=== PATIENT | male | born 1960 | race Caucasian/White ===

== ENCOUNTER 2021-05-09 08:25 | Inpatient (IN) ==
--- NOTE | 2021-05-09 08:53 | Emergency Department Note ---
Impression & Plan Bilateral pulmonary embolism, Iliac DVT (deep venous thrombosis), Phlegmasia cerulea dolens ED Provider Note NAME: JOE MORIN AGE: 60 SEX: M : 1960 ARRIVES VIA: Walk-In INFORMANT: Patient, ED PROVIDER(S): Paco Holley MD Chief Complaint: Left lower extremity swelling, headache, back pain HPI: Patient does present with the above complaints. Patient states that his left lower extremity swelling has been ongoing for approximate 3 to 4 days. No recent surgeries procedures or hospitalizations. No prior history of DVT or PE. The patient has had some associated abdominal back pain and thought that he was developing shingles rash so the patient recently started taking antivirals yesterday. Patient does have a global nonspecific headache. Patient denies any fevers chills chest pains or shortness of breath. Patient is not had any vomiting. The patient did not take his typical back pain medication given his evaluation today. The patient denies any recent falls or trauma. The patient has had some increasing swelling of the left lower extremity but denies any recent trauma. The patient does not take blood thinning medications. Reportedly the patient had a dopplerable pedal pulse in triage. ROS: See HPI for pertinent positives and negatives. A total of 10 systems were reviewed and otherwise negative. Past medical history: See below Surgical history: See below Social history: See below Physical Exam: GENERAL: NAD, wearing a mask, non-toxic. EYE EXAM: Normal conjunctiva. PERRL, no anisocoria and EOM's grossly intact w/o pain. NECK: Supple, no nuchal rigidity, no adenopathy, non-tender. No signs of meningismus. LUNGS: Clear to auscultation. Normal chest wall mechanics. HEART: NSR, no MRG. ABDOMEN: Abdomen soft, non-tender, normo-active bowel sounds, no masses, no re bound or guarding. BACK: No CVA TTP. SKIN: No rashes and no bruising. UPPER EXTREMITIES: Upper extremities are grossly normal. LOWER EXTREMITIES: Significant swelling and cyanosis of the left lower ex tremity, compartments are soft, dopplerable left PT pulse. NEURO EXAM: A&O x3, cranial nerves II-XII grossly intact, normal speech, moves all 4 extremities on command w/o issue. Differential diagnoses: DVT, musculoskeletal, infection, joint effusion, trauma, lymphedema, idiopathic, CHF, as well as other pathologies. Course: Patient was seen and evaluated the bedside. Full history physical exam was performed. EKG interpreted by me Normal sinus rhythm, rate of 86, normal intervals, normal axis, no ST changes or T WI. Imaging Studies: See Below Cardiac monitoring: An order was placed for continuous cardiac monitoring. The monitor shows a rate of 85 with sinus rhythm. MDM: Patient does present with left lower extremity swelling headache and back pain. Patient did have blood work completed. Patient did go to ultrasound initially and arterial Doppler was ordered given the cyanosis of the left lower extremity. This was ordered initially with the idea that if the patient had a negative study the patient will get a DVT study. Arterial Doppler was negative and the coffee machine technician did perform a DVT ultrasound which showed to have large clot burden in the left lower extremity. I did tell CAT scan to still get the contrasted study with mild kidney dysfunction of creatinine 1.7 given the patient's abdominal pain likely cerulea dolens and reported labored breathing. Patient also did have CT of the head given the patient's headache. Patient CT of the head is negative. CT of the chest does show bilateral PEs. CT abdomen pelvis did show the bilateral PEs as well as iliac vein thromboses. Heparin was ordered. I did speak with the on-call vascular surgeon Dr. Guzman who only room recommended heparinization at this time. I did speak the on-call hospitalist AZUL Perla and the patient was admitted to Dr. Seay. Critical Care: I have personally spent 77 minutes of critical care time in direct management of this patient. This includes bedside care, interpretation of diagnostic studies, and testing, discussion with consultants, patient, and family members, and other require inpatient management activities. This 77 minutes is in excess of all separately billable procedures. Past Med/Surg History Medical History Chronic back pain s/p injections / ablations Degenerative disc disease, lumbar GERD (gastroesophageal reflux disease) Lumbar facet joint syndrome Lumbar radiculopathy Sacroiliitis WPW (Xnxng-Csjybcrys-Bbwsk syndrome) Surgical History H/O left knee surgery H/O thumb surgery S/P arthroscopic surgery of right knee Family History Denies family history of Blood clotting disorder Social History Smoking Status: Former smoker Tobacco Type: E-cigarettes / Vaping Hx Alcohol Use: No Preferred Language: Citizen Of [place] Communication Ability: Effective Visual Impairment: No Limitations Hearing Ability: Normal Hide Trimmer Required: No Beliefs That Will Affect Care: None marital status: Current Living Situation: Spouse current occupational status: employed current occupation: Golf pro Feels Safe at Home: Yes Allergies Allergies Allergy/AdvReac Type Severity Reaction Status Date / Time digoxin Allergy Verified 05/09/21 10:57 Home Meds Home Medications Medication Instructions Recorded Confirmed cyclobenzaprine 10 mg tablet 10 mg PO BID PRN tab 02/17/19 05/09/21 meloxicam 15 mg tablet (Mobic) 15 mg PO DAILY 02/17/19 05/09/21 pantoprazole 40 mg tablet,delayed 40 mg PO DAILY PRN 02/17/19 05/09/21 release (Protonix) gabapentin 300 mg capsule 300 mg PO TID cap 11/02/20 05/09/21 (Neurontin) ibuprofen 200 mg tablet (Advil) 200 mg PO Q6H PRN 05/09/21 05/09/21 rosuvastatin 5 mg tablet (Crestor) 5 mg PO QAM 05/09/21 05/09/21 valacyclovir 1 gram tablet 1 mg PO TID 05/09/21 05/09/21 (Valtrex) Results & Data (ED) Vital Signs Vital Signs - 24 hr 05/09/21 08:36 05/09/21 09:36 05/09/21 10:30 Temperature 37.4 C Temperature Source Oral Pulse Rate 85 83 Pulse Rate [Finger] Pulse Rate from SpO2 Sensor 82 Respiratory Rate 20 14 Blood Pressure 113/71 127/82 Blood Pressure [Right Arm] Blood Pressure Mean 85 97 Blood Pressure Mean [Right Arm] Pulse Oximetry 99 98 95 Oxygen Delivery Method Room Air Room Air Sepsis Recent Fever Within 48 Hours No Sepsis New/Unexplained Change in Mental Status No Sepsis Action Taken by Nursing No Action Required 05/09/21 10:48 05/09/21 11:00 Temperature Temperature Source Pulse Rate 90 Pulse Rate [Finger] 84 Pulse Rate from SpO2 Sensor 90 Respiratory Rate 16 16 Blood Pressure 133/87 Blood Pressure [Right Arm] 127/82 Blood Pressure Mean 102 Blood Pressure Mean [Right Arm] 97 Pulse Oximetry 96 95 Oxygen Delivery Method Room Air Sepsis Recent Fever Within 48 Hours Sepsis New/Unexplained Change in Mental Status Sepsis Action Taken by Long-Term Medications Current Medication List: was personally reviewed by me Laboratory Data Attestation: I reviewed the patient's lab results. Result diagrams: 05/09/21 09:01 05/09/21 09: Lab Results 05/09/21 05/09/21 05/09/21 Range/Units 09:01 09: 09:01 WBC 14.99 H (4.8-10.8) K/uL RBC 5.54 (4.7-6.1) M/uL Hgb 17.3 (14.0-18.0) g/dL Hct 48.9 (42-52) % MCV 88.3 (80-100) fL MCH 31.2 (25-34) pg MCHC 35.4 (32-36) g/dL RDW Std Deviation 40.4 (36.4-46.3) fL RDW Coeff of Fortino 12.4 (11.5-14.5) % Plt Count 254 (130-400) K/uL MPV 9.5 (7.4-10.4) fL Immature Gran % (Auto) 0.1 % Neut % (Auto) 82.2 % Lymph % (Auto) 11.7 % [place] % (Auto) 4.7 % Eos % (Auto) 1.0 % Baso % (Auto) 0.3 % Neut # (Auto) 12.32 H (1.4-6.5) K/uL Lymph # (Auto) 1.75 (1.2-3.4) K/uL [place] # (Auto) 0.71 H (0.11-0.59) K/uL Eos # (Auto) 0.15 (0-0.5) K/uL Baso # (Auto) 0.04 (0-0.2) K/uL Immature Gran # (Auto) 0.02 (0.00-0.02) K/uL PT 10.6 (9.0-12.0) Seconds INR 1.0 (0.9-1.1) Sodium 137 (136-145) mmol/L Potassium 4.1 (3.5-5.1) mmol/L Chloride 103 (98-107) mmol/L Carbon Dioxide 24 (21-32) mmol/L Anion Gap 10.0 (3-11) BUN 22 H (7-18) mg/dl Creatinine 1.73 H (0.6-1.4) mg/dl Est Cr Clr Drug Dosing Not Reportable Est GFR ( Amer) 48.0 ml/min Est GFR (Non-Af Amer) 41.4 ml/min BUN/Creatinine Ratio 12.4 (10-20) Glucose 173 H (70-99) mg/dl Calcium 9.6 (8.5-10.1) mg/dl Total Bilirubin 0.9 (0.2-1) mg/dl AST 17 (15-37) U/L ALT 34 (12-78) U/L Alkaline Phosphatase 83 (45-117) U/L Troponin I < 0.015 (0-0.045) ng/ml Total Protein 9.3 H (6.4-8.2) gm/dl Albumin 4.4 (3.4-5.0) gm/dl Globulin 4.9 H (2.5-4.0) gm/dl Albumin/Globulin Ratio 0.9 (0.9-2) TSH 1.600 (0.300-4.500) uIu/ml COVID-19 Eval Order SARS-CoV-2 (PCR) (Negative) 05/09/21 05/09/21 Range/Units 09:31 09:31 WBC (4.8-10.8) K/uL RBC (4.7-6.1) M/uL Hgb (14.0-18.0) g/dL Hct (42-52) % MCV (80-100) fL MCH (25-34) pg MCHC (32-36) g/dL RDW Std Deviation (36.4-46.3) fL RDW Coeff of Fortino (11.5-14.5) % Plt Count (130-400) K/uL MPV (7.4-10.4) fL Immature Gran % (Auto) % Neut % (Auto) % Lymph % (Auto) % [place] % (Auto) % Eos % (Auto) % Baso % (Auto) % Neut # (Auto) (1.4-6.5) K/uL Lymph # (Auto) (1.2-3.4) K/uL [place] # (Auto) (0.11-0.59) K/uL Eos # (Auto) (0-0.5) K/uL Baso # (Auto) (0-0.2) K/uL Immature Gran # (Auto) (0.00-0.02) K/uL PT (9.0-12.0) Seconds INR (0.9-1.1) Sodium (136-145) mmol/L Potassium (3.5-5.1) mmol/L Chloride (98-107) mmol/L Carbon Dioxide (21-32) mmol/L Anion Gap (3-11) BUN (7-18) mg/dl Creatinine (0.6-1.4) mg/dl Est Cr Clr Drug Dosing Est GFR ( Amer) ml/min Est GFR (Non-Af Amer) ml/min BUN/Creatinine Ratio (10-20) Glucose (70-99) mg/dl Calcium (8.5-10.1) mg/dl Total Bilirubin (0.2-1) mg/dl AST (15-37) U/L ALT (12-78) U/L Alkaline Phosphatase (45-117) U/L Troponin I (0-0.045) ng/ml Total Protein (6.4-8.2) gm/dl Albumin (3.4-5.0) gm/dl Globulin (2.5-4.0) gm/dl Albumin/Globulin Ratio (0.9-2) TSH (0.300-4.500) uIu/ml COVID-19 Eval Order Covid19 at [facility] SARS-CoV-2 (PCR) NEGATIVE (Negative) Administered Medications Heparin Sodium/Dextrose (Heparin Sodium/Dextrose) 25,000 units in 500 mls @ 31 mls/hr IV .Q16H8M [facility]; Protocol Stop: 06/08/21 10:59 Last Admin: 05/09/21 11:11 Dose: 1,550 units/hr, 31 mls/hr Documented by: [id number] Cosigned by: [id number] Sodium Chloride (Nss 1000ml) 1,000 mls @ 125 mls/hr IV .Q8H [facility] Stop: 06/08/21 13:17 Last Admin: 05/09/21 13:44 Dose: 125 mls/hr Documented by: [id number] Discontinued Medications Heparin Sodium (Porcine) (Heparin Sod (Porcine) 1000 Unit/Ml) 1 units IV NOW ONE Stop: 05/09/21 10:56 Last Admin: 05/09/21 11:09 Dose: 5,000 units Documented by: [id number] Cosigned by: [id number] Morphine Sulfate (Morphine Sulfate 4 Mg/Ml 1 Ml Carp\Vial) 4 mg IV NOW STA Stop: 05/09/21 09:03 Last Admin: 05/09/21 09:30 Dose: 4 mg Documented by: [id number] Ondansetron HCl (Ondansetron Inj 2 Mg/Ml 2 Ml Vial) 4 mg IV NOW STA Stop: 05/09/21 09:03 Last Admin: 05/09/21 09:31 Dose: 4 mg Documented by: [id number] Imaging Data Radiologist's Impression: Chest X-Ray 05/09/21 09:01 XR chest 1V portable HISTORY: 60 years-old Male weakness acute weakness COMPARISON: CTA chest of same day TECHNIQUE: Portable AP view of the chest FINDINGS: Cardiomediastinal and hilar silhouettes are within normal limits. No pneumothorax, pleural effusion, airspace consolidation or overt pulmonary edema. No acute fracture. Degenerative changes of the shoulders and spine. IMPRESSION: No acute process. ACT 112: Negative or not required by law. The above report was generated using voice recognition software. It may contain grammatical, syntax or spelling errors. Electronically signed by: James Lopez M.D. 05/09/2021 11:04 AM Venous Doppler Study 05/09/21 09:01 LEFT LOWER EXTREMITY VENOUS DOPPLER HISTORY: Left leg swelling. discolored, swollen, decreased cap refill COMPARISON STUDY: None. FINDINGS: Occlusive thrombus within the left common femoral vein, superficial f emoral vein, and popliteal vein with additional areas of thrombus seen within the left calf veins. IMPRESSION: Extensive DVT within the left lower extremity. ACT 112: Negative or not required by law. Electronically signed by: Tim Howard M.D. 05/09/2021 10:18 AM Abdomen/Pelvis CT 05/09/21 09:[address] WITH IV CONTRAST CT DOSE: HISTORY: Generalized abdominal pain and back pain, also left lower extremity DVT. TECHNIQUE: Multiaxial CT images of the abdomen and pelvis were performed following the use of intravenous contrast. A dose lowering technique was utilized adhering to the principles of ALARA. COMPARISON STUDY: None. FINDINGS: Please refer to the same day chest CTA for further evaluation of the bilateral pulmonary emboli and lung bases. No pneumoperitoneum. No pneumatosis. No fractures within the visualized osseous structures. Moderate disc space narrowing at L5-S1. There are few scattered hypodense lesions seen within the liver the majority which are subcentimeter in size and are technically too small to characterize. Dominant hypodense lesion within the left hepatic lobe measures 1.9 cm. These favor cysts. There is mild hepatic steatosis. The gallbladder, pancreas, spleen, and adrenal glands are unremarkable. The kidneys enhance normally. No hydronephrosis. The main portal vein is patent. No retroperitoneal lymphadenopathy. Normal caliber abdominal aorta. The IVC appears patent. There is thrombus identified within the left common iliac, left external iliac, left femoral, and bilateral internal iliac veins. This consistent with deep vein thrombosis. This accounts for the mild fat stranding adjacent to these vascular structures. The prostate gland is mildly enlarged. The bladder is not well- distended but appears unremarkable. The iliac and visualized femoral arteries appear patent. No pelvic lymphadenopathy. No pelvic free fluid. There is left lower extremity edema noted. The mesenteric vessels appear patent. No bowel wall thickening or obstruction. Normal appendix. IMPRESSION: 1. Occlusive DVT involving the left iliac veins, visualized left femoral veins, and right internal iliac veins. The IVC appears patent. 2. Bilateral pulmonary emboli are better appreciated on the same day chest CTA. 3. Additional findings as described above ACT 112: Negative or not required by law. Electronically signed by: Tim Howard M.D. 05/09/2021 11:10 AM Chest CTA 05/09/21 10:08 CHEST CTA for PULMONARY ARTERIES CT DOSE: HISTORY: Shortness of breath. Known DVT. TECHNIQUE: Multiaxial CT images of the chest were performed following the intravenous administration of contrast to evaluate the pulmonary arteries. Maximal intensity projection images were also obtained. A dose lowering technique was utilized adhering to the principles of ALARA. COMPARISON STUDY: Chest CT 05/23/2017. FINDINGS: Filling defects seen within the right lower lobar pulmonary artery and extending into the right lower lobe segmental/subsegmental branches. There is also a filling defect seen within the left lower lobe segmental/subsegmental branches. There is also a small nonocclusive filling defect seen within the distal right main pulmonary artery and extending into the right upper lobe or pulmonary artery. These are consistent with pulmonary emboli. No evidence for right-sided heart strain. No evidence for an aortic dissection. Please refer to same day abdomen and pelvis CT for further evaluation of the abdominal structures. No mediastinal or hilar lymphadenopathy. Normal esophagus. No pleural or pericardial effusions. No suspicious lytic or blastic osseous le sions. The central airways are patent. No pneumothorax. Small peripheral groundglass airspace opacities within the right lower lobe may represent developing pulmonary infarcts. IMPRESSION: 1. Multiple bilateral pulmonary emboli, right greater than left. No evidence for right-sided heart strain. 2. Small peripheral groundglass densities within the right lower lobe may represent developing pulmonary infarcts. ACT 112: Negative or not required by law. Electronically signed by: Tim Howard M.D. 05/09/2021 10:[address] 05/09/21 10:[address] DOSE: 2377.22 mGy.cm HISTORY: headache TECHNIQUE: Multiaxial CT images of the head were performed without the use of intravenous contrast. Automated exposure control was utilized for this study. A dose lowering technique was utilized adhering to the principles of ALARA. Comparison: None. Findings: The paranasal sinuses and mastoid air cells are clear. The calvarium and skull base are intact. The ventricles and sulci are within normal limits. There is no mass, hematoma, midline shift, or acute infarct. Impression: No acute intracranial abnormality. ACT 112: Negative or not required by law. Electronically signed by: Tim Howard M.D. 05/09/2021 10:28 AM Discharge Plan Visit Data Chief Complaint: Swelling/Edema to Extremity Stated Complaint: SWOLLEN LEG,EXTREME BACK PAIN ED Provider: Paco Holley Discharge Problem: Bilateral pulmonary embolism, Iliac DVT (deep venous thrombosis), Phlegmasia ce rulea dolens Patient Disposition: Admitted As Inpatient Discharge Instructions Interventions: ED Discharge Assessment Last Done: 05/09/21 13:00
[2021-05-09] MEDS ORDERED: ONDANSETRON INJ 2 MG/ML 2 ML VIAL IV STA (09:02)
[2021-05-09] MEDS ORDERED: MoRPHine SULFATE 4 MG/ML 1 ML CARP\\VIAL IV STA (09:02)
[2021-05-09 09:11] LABS: Basophils # (auto) 0.04 K/uL (0-0.2); Basophils % (auto) 0.3 %; Eosinophils # (auto) 0.15 K/uL (0-0.5); Hematocrit (blood only) 48.9 % (42-52); Hemoglobin 17.3 g/dL (14.0-18.0); Immature Granulocytes # (auto) 0.02 K/uL (0.00-0.02); Immature Granulocytes % (auto) 0.1 %; Lymphocytes # (auto) 1.75 K/uL (1.2-3.4); Lymphocytes % (auto) 11.7 %; Mean Corpuscular Hemoglobin 31.2 pg (25-34); Mean Corpuscular Hgb Conc 35.4 g/dL (32-36); Mean Corpuscular Volume 88.3 fL (80-100); Mean Platelet Volume 9.5 fL (7.4-10.4); Monocytes # (auto) 0.71 K/uL (0.11-0.59); Monocytes % (auto) 4.7 %; Neutrophils # (auto) 12.32 K/uL (1.4-6.5); Neutrophils % (auto) 82.2 %; Platelet Count 254 K/uL (130-400); RDW Coefficient of Variation 12.4 % (11.5-14.5); RDW Standard Deviation 40.4 fL (36.4-46.3); Red Blood Count 5.54 M/uL (4.7-6.1); White Blood Count 14.99 K/uL (4.8-10.8)
[2021-05-09 09:25] LABS: Prothrombin Time 10.6 Seconds (9.0-12.0)
[2021-05-09 09:28] LABS: Alanine Aminotransferase 34 U/L (12-78); Albumin Level 4.4 gm/dl (3.4-5.0); Aspartate Aminotransferase 17 U/L (15-37); BUN Creatinine Ratio 12.4 (10-20); Blood Urea Nitrogen 22 mg/dl (7-18); Calcium 9.6 mg/dl (8.5-10.1); Carbon Dioxide 24 mmol/L (21-32); Chloride 103 mmol/L (98-107); Est GFR (Non-African American) 41.4 ml/min; Glucose 173 mg/dl (70-99); Potassium 4.1 mmol/L (3.5-5.1); Sodium 137 mmol/L (136-145)
[2021-05-09 09:39] LABS: Albumin Globulin Ratio 0.9 (0.9-2); Alkaline Phosphatase 83 U/L (45-117); Bilirubin,Total 0.9 mg/dl (0.2-1); Globulin 4.9 gm/dl (2.5-4.0); Total Protein 9.3 gm/dl (6.4-8.2); Troponin I < 0.015 ng/ml (0-0.045)
--- NOTE | 2021-05-09 10:19 | Ultrasound Report ---
LEFT LOWER EXTREMITY VENOUS DOPPLER HISTORY: Left leg swelling. discolored, swollen, decreased cap refill COMPARISON STUDY: None. FINDINGS: Occlusive thrombus within the left common femoral vein, superficial femoral vein, and popli teal vein with additional areas of thrombus seen within the left calf veins. IMPRESSION: Extensive DVT within the left lower extremity. ACT 112: Negative or not required by law. Electronically signed by: Tim Howard M.D. 05/09/2021 10:18 AM
--- NOTE | 2021-05-09 10:30 | CT Scan Report ---
HEAD CT NONCONTRAST CT DOSE: 2377.22 mGy.cm HISTORY: headache TECHNIQUE: Multiaxial CT images of the head were performed without the use of intravenous contrast. A utomated exposure control was utilized for this study. A dose lowering technique was utilized adheri ng to the principles of ALARA. Comparison: None. Findings: The paranasal sinuses and mastoid air cells are clear. The calvarium and skull base are int act. The ventricles and sulci are within normal limits. There is no mass, hematoma, midline shift, or acute infarct. Impression: No acute intracranial abnormality. ACT 112: Negative or not required by law. Electronically signed by: Tim Howard M.D. 05/09/2021 10:28 AM
[2021-05-09] MEDS ORDERED: Heparin IV Adult Wt-Based Standard WITH Bolus Protocol IV STA (10:39)
[2021-05-09] MEDS ORDERED: HEPARIN SOD (PORCINE) 1000 UNIT/ML IV ONE (10:55)
--- NOTE | 2021-05-09 10:57 | CT Scan Report ---
CHEST CTA for PULMONARY ARTERIES CT DOSE: HISTORY: Shortness of breath. Known DVT. TECHNIQUE: Multiaxial CT images of the chest were performed following the intravenous administration of contrast to evaluate the pulmonary arteries. Maximal intensity projection images were also obtaine d. A dose lowering technique was utilized adhering to the principles of ALARA. COMPARISON STUDY: Chest CT 05/23/2017. FINDINGS: Filling defects seen within the right lower lobar pulmonary artery and extending into the r ight lower lobe segmental/subsegmental branches. There is also a filling defect seen within the left lower lobe segmental/subsegmental branches. There is also a small nonocclusive filling defect seen wi thin the distal right main pulmonary artery and extending into the right upper lobe or pulmonary juanis ry. These are consistent with pulmonary emboli. No evidence for right-sided heart strain. No evidence for an aortic dissection. Please refer to same day abdomen and pelvis CT for further evaluation of t he abdominal structures. No mediastinal or hilar lymphadenopathy. Normal esophagus. No pleural or per icardial effusions. No suspicious lytic or blastic osseous lesions. The central airways are patent. N o pneumothorax. Small peripheral groundglass airspace opacities within the right lower lobe may repre sent developing pulmonary infarcts. IMPRESSION: 1. Multiple bilateral pulmonary emboli, right greater than left. No evidence for right-sided heart st rain. 2. Small peripheral groundglass densities within the right lower lobe may represent developing pulmon alyssa infarcts. ACT 112: Negative or not required by law. Electronically signed by: Tim Howard M.D. 05/09/2021 10:55 AM
--- NOTE | 2021-05-09 11:05 | XRay Report ---
XR chest 1V portable HISTORY: 60 years-old Male weakness acute weakness COMPARISON: CTA chest of same day TECHNIQUE: Portable AP view of the chest FINDINGS: Cardiomediastinal and hilar silhouettes are within normal limits. No pneumothorax, pleural effusion, airspace consolidation or overt pulmonary edema. No acute fracture. Degenerative changes of the shoul ders and spine. IMPRESSION: No acute process. ACT 112: Negative or not required by law. The above report was generated using voice recognition software. It may contain grammatical, syntax o r spelling errors. Electronically signed by: James Lopez M.D. 05/09/2021 11:04 AM
[2021-05-09] MEDS: HEPARIN SODIUM/DEXTROSE 25,000 UNITS/500 ML BAG IV SCH (11:11)
--- NOTE | 2021-05-09 11:11 | CT Scan Report ---
ABDOMEN AND PELVIS CT WITH IV CONTRAST CT DOSE: HISTORY: Generalized abdominal pain and back pain, also left lower extremity DVT. TECHNIQUE: Multiaxial CT images of the abdomen and pelvis were performed following the use of intrave nous contrast. A dose lowering technique was utilized adhering to the principles of ALARA. COMPARISON STUDY: None. FINDINGS: Please refer to the same day chest CTA for further evaluation of the bilateral pulmonary em boli and lung bases. No pneumoperitoneum. No pneumatosis. No fractures within the visualized osseous structures. Moderate disc space narrowing at L5-S1. There are few scattered hypodense lesions seen wi thin the liver the majority which are subcentimeter in size and are technically too small to characte rize. Dominant hypodense lesion within the left hepatic lobe measures 1.9 cm. These favor cysts. Ther e is mild hepatic steatosis. The gallbladder, pancreas, spleen, and adrenal glands are unremarkable. The kidneys enhance normally. No hydronephrosis. The main portal vein is patent. No retroperitoneal l ymphadenopathy. Normal caliber abdominal aorta. The IVC appears patent. There is thrombus identified within the left common iliac, left external iliac, left femoral, and bilateral internal iliac veins. This consistent with deep vein thrombosis. This accounts for the mild fat stranding adjacent to these vascular structures. The prostate gland is mildly enlarged. The bladder is not well-distended but ap pears unremarkable. The iliac and visualized femoral arteries appear patent. No pelvic lymphadenopath y. No pelvic free fluid. There is left lower extremity edema noted. The mesenteric vessels appear pat ent. No bowel wall thickening or obstruction. Normal appendix. IMPRESSION: 1. Occlusive DVT involving the left iliac veins, visualized left femoral veins, and right internal il iac veins. The IVC appears patent. 2. Bilateral pulmonary emboli are better appreciated on the same day chest CTA. 3. Additional findings as described above ACT 112: Negative or not required by law. Electronically signed by: Tim Howard M.D. 05/09/2021 11:10 AM
[2021-05-09] MEDS ORDERED: CYCLOBENZAPRINE HCL 10 MG TAB PO PRN (13:23)
--- NOTE | 2021-05-09 13:31 | History & Physical Report ---
Date of Service May 09, 2021 Assessment & Plan (1) Phlegmasia cerulea dolens: (2) Iliac DVT (deep venous thrombosis): (3) Bilateral pulmonary embolism: (4) DVT (deep venous thrombosis): Plan: -Admit to [facility] with telemetry -Patient presenting from home with reports of worsening left lower extremity pain and swelling -In the ED, found to have extensive left lower extremity DVT involving the left iliac veins, visualized left femoral veins, and right internal iliac veins -CTA chest shows bilateral pulmonary embolism -Patient hemodynamically stable, saturating well on room air -Seems to be unprovoked, recommend outpatient hypercoagulable work-up -S/p heparin bolus and drip in the ED, continue -Frequent LLE vascular checks, monitor closely for signs of compartment syndrome -Vascular surgery consult, input appreciated (5) KASSY (acute kidney injury): Plan: -Creatinine 1.7 -May be due to recent NSAID use -Recheck BMP later today, if no improvement or worsening, consider further renal imaging -IVF, hold NSAIDs, gabapentin (6) DVT prophylaxis: Plan: -On IV heparin Admission and Anticipated Discharge Date Admission Date: May 09, 2021 History of Present Illness Chief Complaint: Left lower extremity swelling and pain Primary Care Provider: Marquis Barrett MD 60-year-old male with PMH chronic back pain, dyslipidemia, former tobacco abuse, and other problems as below who presents the ED for evaluation of left lower extremity swelling and pain. Patient notes a slowly increasing left leg swelling and pain over the past few days. Patient also reports chronic low back pain which seems to be at baseline however yesterday, he developed some tingling to lower back that he felt was similar to a shingles outbreak before. Patient had a telemedicine visit with PCP yesterday who prescribed prednisone and valacyclovir. This morning, left leg had swelling extending from the foot up to the hip and was completely discolored. Patient then presented to the ED for further evaluation. Patient thinks he may have some mild worsening shortness of breath. No chest pain. Denies lightheadedness, dizziness, diaphoresis, syncopal events. No other recent illnesses, fevers, chills. He denies abdominal pain, nausea, vomiting, diarrhea. No urinary symptoms. In the ED, LLE venous Doppler shows extensive DVT within the left lower extremity. CTA ABD/pelvis shows occlusive DVT involving the left iliac veins, visualized left femoral veins, and right internal iliac veins. The IVC appears patent. CT chest shows Multiple bilateral pulmonary emboli, right greater than left. No evidence for right-sided heart strain. Patient is hemodynamically stable. He was given a heparin bolus and started on a drip. He also received doses of IV morphine and IV Zofran. Allergies Allergy/AdvReac Type Severity Reaction Status Date / Time digoxin Allergy Verified 05/09/21 10:57 Home Medications Medication Instructions Recorded Confirmed Type cyclobenzaprine 10 mg tablet 10 mg PO BID PRN tab 02/17/19 05/09/21 History meloxicam 15 mg tablet (Mobic) 15 mg PO DAILY 02/17/19 05/09/21 History pantoprazole 40 mg tablet,delayed 40 mg PO DAILY PRN 02/17/19 05/09/21 History release (Protonix) gabapentin 300 mg capsule 300 mg PO TID cap 11/02/20 05/09/21 History (Neurontin) ibuprofen 200 mg tablet (Advil) 200 mg PO Q6H PRN 05/09/21 05/09/21 History rosuvastatin 5 mg tablet (Crestor) 5 mg PO QAM 05/09/21 05/09/21 History valacyclovir 1 gram tablet 1 mg PO TID 05/09/21 05/09/21 History (Valtrex) Past Med/Surg History Medical History Chronic back pain s/p injections / ablations Degenerative disc disease, lumbar GERD (gastroesophageal reflux disease) Lumbar facet joint syndrome Lumbar radiculopathy Sacroiliitis WPW (Guhgu-Qdcmiiknk-Qhdkh syndrome) Surgical History H/O left knee surgery H/O thumb surgery S/P arthroscopic surgery of right knee Family History Denies family history of Blood clotting disorder Social History Smoking Status: Former smoker Tobacco Type: E-cigarettes / Vaping Hx Alcohol Use: No Preferred Language: Zimbabwean Communication Ability: Effective Visual Impairment: No Limitations Hearing Ability: Normal Editorial Cartoonist Required: No Beliefs That Will Affect Care: None marital status: Current Living Situation: Spouse current occupational status: employed current occupation: Golf pro Feels Safe at Home: Yes Review of Systems Review of Systems: ROS per HPI, all other systems reviewed and negative Physical Exam Physical Exam: Please refer to Dr. Cano's addendum for physical exam. Results & Data Results & Data ([facility]) Vital Signs (Past 12 Hours) Vital Signs Temp Pulse Pulse Resp BP BP Pulse Ox 05/09/21 13:00 83 22 132/90 96 05/09/21 12:30 87 22 132/100 98 05/09/21 12:00 83 18 134/77 96 05/09/21 11:30 95 H 18 146/81 H 96 05/09/21 11:00 90 16 133/87 95 05/09/21 10:48 84 16 127/82 96 05/09/21 10:30 83 14 127/82 95 05/09/21 09:36 98 05/09/21 08:36 37.4 C 85 20 113/71 99 Laboratory Results Short CBC 05/09/21 Range/Units 09:01 WBC 14.99 H (4.8-10.8) K/uL Hgb 17.3 (14.0-18.0) g/dL Hct 48.9 (42-52) % Plt Count 254 (130-400) K/uL BMP 05/09/21 09:01 Sodium 137 Potassium 4.1 Chloride 103 Carbon Dioxide 24 BUN 22 H Creatinine 1.73 H Glucose 173 H Calcium 9.6 Cardiac Enzymes 05/09/21 Range/Units 09:01 Troponin I < 0.015 (0-0.045) ng/ml Liver Function 05/09/21 Range/Units 09:01 Total Bilirubin 0.9 (0.2-1) mg/dl AST 17 (15-37) U/L ALT 34 (12-78) U/L Alkaline Phosphatase 83 (45-117) U/L Albumin 4.4 (3.4-5.0) gm/dl Diagnostic Findings Chest X-Ray 05/09/21 09:01 XR chest 1V portable HISTORY: 60 years-old Male weakness acute weakness COMPARISON: CTA chest of same day TECHNIQUE: Portable AP view of the chest FINDINGS: Cardiomediastinal and hilar silhouettes are within normal limits. No pneumothorax, pleural effusion, airspace consolidation or overt pulmonary edema. No acute fracture. Degenerative changes of the shoulders and spine. IMPRESSION: No acute process. ACT 112: Negative or not required by law. The above report was generated using voice recognition software. It may contain grammatical, syntax or spelling errors. Electronically signed by: James Lopez M.D. 05/09/2021 11:04 AM Venous Doppler Study 05/09/21 09:01 LEFT LOWER EXTREMITY VENOUS DOPPLER HISTORY: Left leg swelling. discolored, swollen, decreased cap refill COMPARISON STUDY: None. FINDINGS: Occlusive thrombus within the left common femoral vein, superficial femoral vein, and popliteal vein with additional areas of thrombus seen within the left calf veins. IMPRESSION: Extensive DVT within the left lower extremity. ACT 112: Negative or not required by law. Electronically signed by: Tim Howard M.D. 05/09/2021 10:18 AM Abdomen/Pelvis CT 05/09/21 09:[address] WITH IV CONTRAST CT DOSE: HISTORY: Generalized abdominal pain and back pain, also left lower extremity DVT. TECHNIQUE: Multiaxial CT images of the abdomen and pelvis were performed following the use of intravenous contrast. A dose lowering technique was utilized adhering to the principles of ALARA. COMPARISON STUDY: None. FINDINGS: Please refer to the same day chest CTA for further evaluation of the bilateral pulmonary emboli and lung bases. No pneumoperitoneum. No pneumatosis. No fractures within the visualized osseous structures. Moderate disc space narrowing at L5-S1. There are few scattered hypodense lesions seen within the liver the majority which are subcentimeter in size and are technically too small to characterize. Dominant hypodense lesion within the left hepatic lobe measures 1.9 cm. These favor cysts. There is mild hepatic steatosis. The gallbladder, pancreas, spleen, and adrenal glands are unremarkable. The kidneys enhance normally. No hydronephrosis. The main portal vein is patent. No retroperitoneal lymphadenopathy. Normal caliber abdominal aorta. The IVC appears patent. There is thrombus identified within the left common iliac, left external iliac, left femoral, and bilateral internal iliac veins. This consistent with deep vein thrombosis. This accounts for the mild fat stranding adjacent to these vascular structures. The prostate gland is mildly enlarged. The bladder is not well- distended but appears unremarkable. The iliac and visualized femoral arteries appear patent. No pelvic lymphadenopathy. No pelvic free fluid. There is left lower extremity edema noted. The mesenteric vessels appear patent. No bowel wall thickening or obstruction. Normal appendix. IMPRESSION: 1. Occlusive DVT involving the left iliac veins, visualized left femoral veins, and right internal iliac veins. The IVC appears patent. 2. Bilateral pulmonary emboli are better appreciated on the same day chest CTA. 3. Additional findings as described above ACT 112: Negative or not required by law. Electronically signed by: Tim Howard M.D. 05/09/2021 11:10 AM Chest CTA 05/09/21 10:08 CHEST CTA for PULMONARY ARTERIES CT DOSE: HISTORY: Shortness of breath. Known DVT. TECHNIQUE: Multiaxial CT images of the chest were performed following the intravenous administration of contrast to evaluate the pulmonary arteries. Maximal intensity projection images were also obtained. A dose lowering technique was utilized adhering to the principles of ALARA. COMPARISON STUDY: Chest CT 05/23/2017. FINDINGS: Filling defects seen within the right lower lobar pulmonary artery and extending into the right lower lobe segmental/subsegmental branches. There is also a filling defect seen within the left lower lobe segmental/subsegmental branches. There is also a small nonocclusive filling defect seen within the distal right main pulmonary artery and extending into the right upper lobe or pulmonary artery. These are consistent with pulmonary emboli. No evidence for right-sided heart strain. No evidence for an aortic dissection. Please refer to same day abdomen and pelvis CT for further evaluation of the abdominal structures. No mediastinal or hilar lymphadenopathy. Normal esophagus. No pleural or pericardial effusions. No suspicious lytic or blastic osseous lesions. The central airways are patent. No pneumothorax. Small peripheral groundglass airspace opacities within the right lower lobe may represent developing pulmonary infarcts. IMPRESSION: 1. Multiple bilateral pulmonary emboli, right greater than left. No evidence for right-sided heart strain. 2. Small peripheral groundglass densities within the right lower lobe may represent developing pulmonary infarcts. ACT 112: Negative or not required by law. Electronically signed by: Tim Howard M.D. 05/09/2021 10:[address] 05/09/21 10:[address] DOSE: 2377.22 mGy.cm HISTORY: headache TECHNIQUE: Multiaxial CT images of the head were performed without the use of intravenous contrast. Automated exposure control was utilized for this study. A dose lowering technique was utilized adhering to the principles of ALARA. Comparison: None. Findings: The paranasal sinuses and mastoid air cells are clear. The calvarium and skull base are intact. The ventricles and sulci are within normal limits. There is no mass, hematoma, midline shift, or acute infarct. Impression: No acute intracranial abnormality. ACT 112: Negative or not required by law. Electronically signed by: Tim Howard M.D. 05/09/2021 10:28 AM Code Status & VTE Plan VTE Prophylaxis Plan VTE Prophylaxis will be ordered: No Supervising Physician Co-Signing Physician Notes Patient is a 60-year-old male with history of hyperlipidemia, mild COPD, LARON, chronic lower back pain, Nsmvw-Rizmmtveh-Rcxae syndrome admitted for left lower extremity DVT and bilateral PE PE: NAD Heart: normal S1/S2, no murmur Lungs: CTA, no wheezing or crackles Abd: ND, NT, soft L LE: severe swelling with disolouration, cold to touch, difficult to assess dorsalis and posterior tibialis pulse Psych: AAOx3 Skin (back): no sign of vesicles or erythema or ulcers/rash Plan: DVT and PE: -heparin gtt -vascular consult for L LE DVT (occlusive thrombus) ----monitor for compartment syndrome -would need outpt work for coagulopathy - echo ordered KASSY: -pt was taking advil and meloxicam with gabapentin -hold meds -BMP in the evening: worsening then will get renal Doppler (both artery and venous) Agree with A/P by Saida LIANG
[2021-05-09] MEDS: SODIUM CHLORIDE 0.9% 1000ML 1,000 ML IV SCH ×2 (13:44→22:14)
--- NOTE | 2021-05-09 16:04 | Electrocardiogram Report ---
Test Reason : Blood Pressure : / mmHG Vent. Rate : 086 BPM Atrial Rate : 086 BPM P-R Int : 170 ms QRS Dur : 082 ms QT Int : 350 ms P-R-T Axes : 021 -07 049 degrees QTc Int : 418 ms Normal sinus rhythm Normal ECG When compared with ECG of 14-OCT-2008 10:53, Vent. rate has increased BY 32 BPM QRS duration has decreased Confirmed by Ryley Chew ([id number]) on 05/09/2021 4:04:17 PM Referred By: REFERRED SELF Confirmed By:Reno Chew
[2021-05-09] MEDS: ACETAMINOPHEN 325 MG TAB PO PRN (16:39)
[2021-05-09] MEDS: MoRPHine SULFATE 4 MG/ML 1 ML CARP\\VIAL IV PRN (16:47)
[2021-05-09 17:21] LABS: BUN Creatinine Ratio 13.2 (10-20); Calcium 8.8 mg/dl (8.5-10.1); Creatinine Clr Calc Pharmacy 61.7 ml/min; Est GFR (African American) 56.6 ml/min; Est GFR (Non-African American) 48.8 ml/min
[2021-05-09 17:24] LABS: Partial Thromboplastin Ratio 2.4
[2021-05-09] MEDS ORDERED: FLUARIX QUADRIVALENT 0.5 ML SYR IM ONE (17:35)
[2021-05-09 20:03] LABS: Appearance Urine Clear (Clear); Bacteria Urine Automated Negative (Negative); Bilirubin Urine Negative (Negative); Blood Urine Negative (Negative); Cast Urine Automated 0 /lpf (0-5); Color Urine Yellow; Epithelial Cell Urine Auto 0-5 /lpf (0-5); Glucose Urine UA Negative (Negative); Ketones Urine Negative (Negative); Leukocyte Esterase Urine Negative (Negative); Nitrite Urine Negative (Negative); Protein Urine Trace (Negative); RBC Urine Automated 0-4 /hpf (0-4); Specific Gravity Urine 1.041 (1.000-1.030); Urobilinogen Urine Negative (Negative)
[2021-05-10] MEDS: HEPARIN SODIUM/DEXTROSE 25,000 UNITS/500 ML BAG IV SCH ×3 (02:58→21:29)
[2021-05-10] MEDS: SODIUM CHLORIDE 0.9% 1000ML 1,000 ML IV SCH ×2 (05:27→12:16)
[2021-05-10] MEDS: MoRPHine SULFATE 4 MG/ML 1 ML CARP\\VIAL IV PRN ×2 (08:24→23:36)
[2021-05-10] MEDS: ROSUVASTATIN CALCIUM 5 MG TAB PO SCH (08:25)
[2021-05-10 08:29] LABS: Hematocrit (blood only) 40.3 % (42-52); Mean Corpuscular Hemoglobin 30.7 pg (25-34); Mean Corpuscular Hgb Conc 34.7 g/dL (32-36); Mean Corpuscular Volume 88.4 fL (80-100); Mean Platelet Volume 9.3 fL (7.4-10.4); Platelet Count 208 K/uL (130-400); RDW Coefficient of Variation 12.5 % (11.5-14.5); Red Blood Count 4.56 M/uL (4.7-6.1)
[2021-05-10 08:45] LABS: BUN Creatinine Ratio 12.7 (10-20); Calcium 8.3 mg/dl (8.5-10.1); Creatinine Clr Calc Pharmacy 72.4 ml/min; Est GFR (African American) 69.1 ml/min; Est GFR (Non-African American) 59.6 ml/min; Potassium 4.2 mmol/L (3.5-5.1)
--- NOTE | 2021-05-10 09:44 | Consultation ---
Date of Consultation May 10, 2021 Assessment & Plan (1) DVT (deep venous thrombosis): Pt with extensive LLE DVT and PE. Has considerable LLE edema and discomfort, but is improving with elevation and AC. No indications for vascular surgical intervention at this time. Recommend continue AC, elevation when able(no restrictions), and thigh high compression therapy daily until edema improved, then may transition to knee high compression daily. Orthotics consult ordered. Questionable whether provoked or unprovoked. Recommend testing for hypercoagulable disorders and possible hematology consult. Length of AC therapy up to medicine. History of Present Illness Reason for Consultation: LLE DVT/PE Attending Physician: Destiny Vásquez MD History of Present Illness 60 yo m with hx of WPW, GERD, lumbar radiculopathy, sacroiliitis, admitted with acute extensive LLE DVT and PE which developed over past 4 days, seen in consultation for same. Pt states he noted LLE edema and pain worsening over past 4 days. Denies any chest pain or SOB, but states his chronic mid/low back pain was worse and was taking advil and meloxicam. 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 No prior hx of DVT in past, no recent travel. Pt denies injury, surgery, or trauma to LLE. States he was barely able to walk on it yesterday CREELER. States edema, coloration, and pain is slightly improved today compared to yesterday. Denies AMAYA, fever, chest pain, SOB, abd pain, N/V, rest pain, claudication, other complaints. CT and US imaging demonstrates multiple BL PE, as well as LLE DVT from common femoral to calf veins, part of which is occlusive. Allergies Allergy/AdvReac Type Severity Reaction Status Date / Time digoxin Allergy Verified 05/09/21 10:57 Home Medications Medication Instructions Recorded Confirmed Type cyclobenzaprine 10 mg tablet 10 mg PO BID PRN tab 02/17/19 05/09/21 History meloxicam 15 mg tablet (Mobic) 15 mg PO DAILY 02/17/19 05/09/21 History pantoprazole 40 mg tablet,delayed 40 mg PO DAILY PRN 02/17/19 05/09/21 History release (Protonix) gabapentin 300 mg capsule 300 mg PO TID cap 11/02/20 05/09/21 History (Neurontin) ibuprofen 200 mg tablet (Advil) 200 mg PO Q6H PRN 05/09/21 05/09/21 History rosuvastatin 5 mg tablet (Crestor) 5 mg PO QAM 05/09/21 05/09/21 History valacyclovir 1 gram tablet 1 mg PO TID 05/09/21 05/09/21 History (Valtrex) Patient History Medical History Chronic back pain s/p injections / ablations Degenerative disc disease, lumbar GERD (gastroesophageal reflux disease) Lumbar facet joint syndrome Lumbar radiculopathy Sacroiliitis WPW (Dgjwy-Nhkediqoe-Sjxml syndrome) Surgical History H/O left knee surgery H/O thumb surgery S/P arthroscopic surgery of right knee Family History Denies family history of Blood clotting disorder Social History Smoking Status: Former smoker Tobacco Type: E-cigarettes / Vaping Second Hand Exposure: No; Do You Dip or Chew Tobacco: No; Tobacco Cessation Education Requested by Patient: No Hx Alcohol Use: Yes Hx Substance Use: No Preferred Language: Occitan Communication Ability: Effective Visual Impairment: No Limitations Hearing Ability: Normal Project Control Manager Required: No Beliefs That Will Affect Care: None marital status: Current Living Situation: Spouse current occupational status: employed current occupation: Golf pro Other Information That Helps Us Care for You: No Feels Safe at Home: Yes Safety Concerns: Feels Safe At This Time Assistive Devices: Glasses Review of Systems Review of Systems: 14 systems reviewed and negative aside from HPI Physical Exam Constitutional: WD/WN, vitals as above healthy appearing, cooperative and comfortable; not in distress ENMT: Ears: no hearing impairment Neck: trachea midline Respiratory: normal respiratory effort, lungs clear to auscultation Auscultation: + diminished lung sounds Cardiovascular: Rate/Rhythm: regular rate and regular rhythm Vessels: femoral pulses present, posterior tibial pulses present, dorsalis pedis pulses present and radial pulses present; + abnormal peripheral pulses Extremities: normal capillary refill, + calf tenderness (LLE), + pedal edema (LLE) and + e nasreen (LLE +4) Gastrointestinal (Abdomen): Inspection/Auscultation: abdomen normal to inspection and normal bowel sounds; abdomen not distended Percussion/Palpation: + abdomen tender and abdomen soft Musculoskeletal: no cyanosis or clubbing, extremities motor strength 5/5 Skin: no rashes, warm and dry Neurologic: moves all extremities and awake; no focal motor deficits and not confused Psychiatric: A+Ox3, euthymic affect Results & Data ([facility]) Vital Signs (Past 12 Hours) Vital Signs Temp Pulse Pulse Resp BP Pulse Ox 05/10/21 07:21 36.9 C 72 19 120/66 96 05/10/21 03:30 37.0 C 62 20 120/73 93 05/09/21 23:00 36.8 C 65 65 20 117/72 94
[2021-05-10 12:18] LABS: Partial Thromboplastin Ratio 3.3
[2021-05-10 12:20] LABS: Partial Thromboplastin Time 87.9 Seconds (21.0-31.0)
--- NOTE | 2021-05-10 15:08 | Hospitalist Progress Note ---
Date of Service May 10, 2021 Assessment & Plan (1) Phlegmasia cerulea dolens: (2) Iliac DVT (deep venous thrombosis): (3) Bilateral pulmonary embolism: (4) DVT (deep venous thrombosis): Plan: -Patient presenting from home with reports of worsening left lower extremity pain and swelling -In the ED, found to have extensive left lower extremity DVT involving the left iliac veins, visualized left femoral veins, and right internal iliac veins -CTA chest shows bilateral pulmonary embolism -Patient denies any prior history of blood clots. Denies any family history. Denies any recent travel. Denies any recent surgical intervention. States he is active at baseline. Continue with heparin. Left lower extremity continues to be significantly swollen. Was monitored for any signs of compartment syndrome. Appreciate vascular surgery input. Follow-up with hematology as an outpatient for hypercoagulable work-up. (5) KASSY (acute kidney injury): Plan: -Creatinine 1.7 on admission; today at 1.28. Patient was taking NSAIDs prior to admission. Continue IV fluids today. Monitor daily BMP. Avoid any nephrotoxic agents. (6) DVT prophylaxis: Plan: -On IV heparin Admission and Anticipated Discharge Date Admission Date: May 09, 2021 Subjective Patient is doing okay this morning. Continues to have discomfort in the left lower extremity. Denies any chest pain, shortness of breath, palpitations or a ny dizziness. Denies any prior history of blood clots denies any recent travel or any surgical intervention. Review of Systems Review of Systems: All systems reviewed & are unremarkable except as noted in HPI & below Physical Exam Physical Exam: General: A&Ox3 HENT: NCAT, MMM, EOMI Eyes: PERRLA Neck: Supple, normal range of motion CVS: normal rate and rhythm Resp: b/l decrease breaht sounds Abdomen: Soft, ND/NT Extremities: LLE is more swollen compared to the R Neuro: face symmetric, o focal deficit Skin: warm and dry MSK: no joint swelling/erythema Results & Data Results & Data ([facility]) Vital Signs (Past 12 Hours) Vital Signs Temp Pulse Pulse Resp BP BP Pulse Ox 05/10/21 15:00 58 L 05/10/21 11:00 36.8 C 59 L 18 135/72 95 05/10/21 08:00 58 L 05/10/21 07:21 36.9 C 72 19 120/66 96 05/10/21 03:30 37.0 C 62 20 120/73 93 (1) Phlegmasia cerulea dolens Laterality: left Qualified Code(s): I80.202 - Phlebitis and thrombophlebitis of unspecified deep vessels of left lower extremity (2) Iliac DVT (deep venous thrombosis) Chronicity: acute Laterality: bilateral Qualified Code(s): I82.423 - Acute embolism and thrombosis of iliac vein, bilateral
[2021-05-10] MEDS: ACETAMINOPHEN 325 MG TAB PO PRN (15:28)
[2021-05-10 20:25] LABS: Partial Thromboplastin Ratio 2.3
[2021-05-10 20:39] LABS: Partial Thromboplastin Time 61.5 Seconds (21.0-31.0)
[2021-05-11 07:18] LABS: Partial Thromboplastin Ratio 2.7
[2021-05-11] MEDS: ROSUVASTATIN CALCIUM 5 MG TAB PO SCH (08:29)
--- NOTE | 2021-05-11 12:46 | Hospitalist Progress Note ---
Date of Service May 11, 2021 Assessment & Plan (1) Phlegmasia cerulea dolens: (2) Iliac DVT (deep venous thrombosis): (3) Bilateral pulmonary embolism: (4) DVT (deep venous thrombosis): Plan: -Patient presenting from home with reports of worsening left lower extremity pain and swelling -In the ED, found to have extensive left lower extremity DVT involving the left iliac veins, visualized left femoral veins, and right internal iliac veins -CTA chest shows bilateral pulmonary embolism -Patient denies any prior history of blood clots. Denies any family history. Denies any recent travel. Denies any recent surgical intervention. States he is active at baseline. One possible risk factor being use of vaping. Continue with heparin. Left lower extremity continues to be significantly swollen. Likely transition to NOAC in the next day or 2. Monitored for any signs of compartment syndrome. Appreciate vascular surgery input. Follow-up with hematology as an outpatient for hypercoagulable work-up. Work with PT/OT. (5) KASSY (acute kidney injury): Plan: -Creatinine 1.7 on admission; now 1.28. Patient was taking NSAIDs prior to admission. D/C IV fluids today. Monitor daily BMP. Avoid any nephrotoxic agents. (6) DVT prophylaxis: Plan: -On IV heparin Admission and Anticipated Discharge Date Admission Date: May 09, 2021 Subjective Doing okay this morning. States his left lower extremity swelling is improving along with his pain. States his mobility is getting better. Review of Systems Review of Systems: All systems reviewed & are unremarkable except as noted in HPI & below Physical Exam Physical Exam: General: A&Ox3 HENT: NCAT, MMM, EOMI Eyes: PERRLA Neck: Supple, normal range of motion CVS: normal rate and rhythm Resp: b/l decrease breaht sounds Abdomen: Soft, ND/NT Extremities: LLE is more swollen compared to the R Neuro: face symmetric, o focal deficit Skin: warm and dry MSK: no joint swelling/erythema Results & Data Results & Data ([facility]) Vital Signs (Past 12 Hours) Vital Signs Temp Pulse Pulse Resp BP Pulse Ox 05/11/21 11:10 36.9 C 63 18 132/75 96 05/11/21 07:53 37 C 76 18 130/77 96 05/11/21 07:43 61 10/07/21 04:00 37.2 C 71 20 105/62 92 (1) Phlegmasia cerulea dolens Laterality: left Qualified Code(s): I80.202 - Phlebitis and thrombophlebitis of unspecified deep vessels of left lower extremity (2) Iliac DVT (deep venous thrombosis) Chronicity: acute Laterality: bilateral Qualified Code(s): I82.423 - Acute embolism and thrombosis of iliac vein, bilateral
[2021-05-11] MEDS: HEPARIN SODIUM/DEXTROSE 25,000 UNITS/500 ML BAG IV SCH (13:47)
[2021-05-11 14:36] LABS: Partial Thromboplastin Ratio 1.9
[2021-05-11 14:54] LABS: Partial Thromboplastin Time 50.5 Seconds (21.0-31.0)
[2021-05-11] MEDS: traMADol HCL 50 MG TABLET PO PRN (22:04)
[2021-05-12 07:19] LABS: Partial Thromboplastin Ratio 2.2
[2021-05-12 07:22] LABS: Partial Thromboplastin Time 58.3 Seconds (21.0-31.0)
[2021-05-12] MEDS: ROSUVASTATIN CALCIUM 5 MG TAB PO SCH (08:11)
[2021-05-12] MEDS: HEPARIN SODIUM/DEXTROSE 25,000 UNITS/500 ML BAG IV SCH (08:42)
[2021-05-12 09:02] LABS: Basophils # (auto) 0.04 K/uL (0-0.2); Basophils % (auto) 0.5 %; Eosinophils # (auto) 0.21 K/uL (0-0.5); Eosinophils % (auto) 2.6 %; Hematocrit (blood only) 38.2 % (42-52); Hemoglobin 13.4 g/dL (14.0-18.0); Immature Granulocytes # (auto) 0.02 K/uL (0.00-0.02); Immature Granulocytes % (auto) 0.2 %; Lymphocytes # (auto) 1.33 K/uL (1.2-3.4); Lymphocytes % (auto) 16.3 %; Mean Corpuscular Hemoglobin 30.3 pg (25-34); Mean Corpuscular Hgb Conc 35.1 g/dL (32-36); Mean Corpuscular Volume 86.4 fL (80-100); Mean Platelet Volume 9.1 fL (7.4-10.4); Monocytes % (auto) 6.1 %; Neutrophils # (auto) 6.06 K/uL (1.4-6.5); Neutrophils % (auto) 74.3 %; Platelet Count 239 K/uL (130-400); RDW Coefficient of Variation 12.4 % (11.5-14.5); RDW Standard Deviation 39.6 fL (36.4-46.3); Red Blood Count 4.42 M/uL (4.7-6.1); White Blood Count 8.16 K/uL (4.8-10.8)
[2021-05-12 09:27] LABS: BUN Creatinine Ratio 10.3 (10-20); Creatinine Clr Calc Pharmacy 87.7 ml/min; Est GFR (African American) 86.8 ml/min; Est GFR (Non-African American) 74.8 ml/min; Magnesium 2.5 mg/dl (1.8-2.4); Potassium 3.6 mmol/L (3.5-5.1)
[2021-05-12] MEDS: traMADol HCL 50 MG TABLET PO PRN ×2 (12:04→22:50)
--- NOTE | 2021-05-12 14:26 | Hospitalist Progress Note ---
Date of Service May 12, 2021 Assessment & Plan (1) Phlegmasia cerulea dolens: (2) Iliac DVT (deep venous thrombosis): (3) Bilateral pulmonary embolism: Plan: -Patient presenting from home with reports of worsening left lower extremity pain and swelling -In the ED, found to have extensive left lower extremity DVT involving the left iliac veins, visualized left femoral veins, and right internal iliac veins -CTA chest shows bilateral pulmonary embolism -Patient denies any prior history of blood clots. Denies any family history. Denies any recent travel. Denies any recent surgical intervention. States he is active at baseline. One possible risk factor being use of vaping. Continue with heparin. Left lower extremity continues to be significantly swollen. Likely transition to NOAC in the next day or 2. Pain and swelling have been improving without any evidence of compartment syndrome Appreciate vascular surgery input. Follow-up with hematology as an outpatient for hypercoagulable work-up. Clinically a lot better today denies any respiratory symptoms Discussed the risk of anticoagulation and the patient is willing to go with newer anticoagulation which will be started on discharge Work with PT/OT-awaiting evaluation Possible discharge tomorrow Chronic back pain Has been on gabapentin and NSAID's Gabapentin will be continued and is strongly advised not to use anymore NSAID's Has been getting tramadol for pain control in the hospital Was advised to see his pain therapist following discharge (4) DVT (deep venous thrombosis): (5) KASSY (acute kidney injury): Plan: -Creatinine 1.7 on admission; now 1.28. Patient was taking NSAIDs prior to admission. D/C IV fluids today. Monitor daily BMP. Avoid any nephrotoxic agents. Kidney function has been normalized Advised to drink more fluid (6) DVT prophylaxis: Plan: -On IV heparin Admission and Anticipated Discharge Date Admission Date: May 09, 2021 Subjective 05/12/2021 The patient was seen and examined in medical telemetry unit His leg symptoms have improved and denies any shortness of breath, cough or hemoptysis He has been waiting for physical therapy Review of Systems Review of Systems: All systems reviewed and are unremarkable except as noted below Musculoskeletal: Bilateral leg heaviness which have been improving Physical Exam Physical Exam: Lying in bed comfortably Constitutional: well developed, well nourished and + obese; not ill appearing Eyes: PERRL, conjunctivae normal, anicteric sclerae ENMT: external ear and nose normal, oropharynx normal Neck: trachea midline, no thyromegaly Respiratory: no respiratory distress and no cough Auscultation: lungs clear to auscultation bilaterally Cardiovascular: Rate/Rhythm: regular rate and regular rhythm; not tachycardic Heart Sounds: normal S1, normal S2 and + murmur Extremities: + edema (Trace edema bilaterally, more on the left than the right) Gastrointestinal (Abdomen): Inspection/Auscultation: normal bowel sounds; abdomen not distended Percussion/Palpation: abdomen soft; abdomen nontender Musculoskeletal: No acute arthritis in any joint Neurologic: Alert, awake and oriented x3. No focal sensory and motor deficit appreciated Results & Data Results & Data ([facility]) Vital Signs (Past 12 Hours) Vital Signs Temp Pulse Pulse Resp BP Pulse Ox 05/12/21 11:37 36.8 C 68 18 126/72 96 05/12/21 07:41 60 05/12/21 07:31 37.0 C 59 L 18 127/78 95 05/12/21 04:00 36.9 C 58 L 18 122/72 93 Laboratory Results Short CBC 05/12/21 Range/Units 08:48 WBC 8.16 (4.8-10.8) K/uL Hgb 13.4 L (14.0-18.0) g/dL Hct 38.2 L (42-52) % Plt Count 239 (130-400) K/uL BMP 05/12/21 08:48 Sodium 137 Potassium 3.6 Chloride 105 Carbon Dioxide 28 BUN 11 Creatinine 1.06 Glucose 163 H Calcium 9.0 Medications Administered Current Inpatient Medications Acetaminophen (Acetaminophen 325 Mg Tab) 650 mg PO Q4H PRN PRN Reason: pain/fever Stop: 06/08/21 13:17 Last Admin: 05/10/21 15:28 Dose: 650 mg Documented by: Cyclobenzaprine HCl (Cyclobenzaprine Hcl 10 Mg Tab) 10 mg PO BID PRN PRN Reason: Muscle Spasm Stop: 06/08/21 13:22 Heparin Sodium/Dextrose (Heparin Sodium/Dextrose) 25,000 units in 500 mls @ 28 mls/hr IV .[id number] [facility]; Protocol Stop: 06/08/21 10:59 Last Admin: 05/12/21 08:42 Dose: 1,300 units/hr, 26 mls/hr Documented by: Morphine Sulfate (Morphine Sulfate 4 Mg/Ml 1 Ml Carp\Vial) 4 mg IV Q4H PRN PRN Reason: Pain Stop: 05/23/21 16:30 Last Admin: 05/10/21 23:36 Dose: 4 mg Documented by: Rosuvastatin Calcium (Rosuvastatin Calcium 5 Mg Tab) 5 mg PO QAM [facility] Stop: 06/09/21 08:59 Last Admin: 05/12/21 08:11 Dose: 5 mg Documented by: Tramadol HCl (Tramadol Hcl 50 Mg Tablet) 50 mg PO Q4H PRN PRN Reason: Pain Stop: 06/08/21 16:30 Last Admin: 05/12/21 12:04 Dose: 50 mg Documented by: (1) Phlegmasia cerulea dolens Laterality: left Qualified Code(s): I80.202 - Phlebitis and thrombophlebitis of unspecified deep vessels of left lower extremity (2) Iliac DVT (deep venous thrombosis) Chronicity: acute Laterality: bilateral Qualified Code(s): I82.423 - Acute embolism and thrombosis of iliac vein, bilateral
[2021-05-13] MEDS: HEPARIN SODIUM/DEXTROSE 25,000 UNITS/500 ML BAG IV SCH ×4 (02:05→21:00)
[2021-05-13] MEDS: ROSUVASTATIN CALCIUM 5 MG TAB PO SCH (08:04)
[2021-05-13 08:19] LABS: Basophils # (auto) 0.04 K/uL (0-0.2); Basophils % (auto) 0.5 %; Eosinophils # (auto) 0.33 K/uL (0-0.5); Hematocrit (blood only) 37.8 % (42-52); Hemoglobin 12.9 g/dL (14.0-18.0); Immature Granulocytes # (auto) 0.03 K/uL (0.00-0.02); Immature Granulocytes % (auto) 0.4 %; Lymphocytes # (auto) 1.94 K/uL (1.2-3.4); Lymphocytes % (auto) 23.3 %; Mean Corpuscular Hemoglobin 30.1 pg (25-34); Mean Corpuscular Hgb Conc 34.1 g/dL (32-36); Mean Corpuscular Volume 88.3 fL (80-100); Mean Platelet Volume 8.9 fL (7.4-10.4); Monocytes # (auto) 0.78 K/uL (0.11-0.59); Monocytes % (auto) 9.4 %; Neutrophils % (auto) 62.4 %; Platelet Count 287 K/uL (130-400); RDW Coefficient of Variation 12.2 % (11.5-14.5); Red Blood Count 4.28 M/uL (4.7-6.1); White Blood Count 8.32 K/uL (4.8-10.8)
[2021-05-13 08:42] LABS: BUN Creatinine Ratio 11.7 (10-20); Calcium 8.8 mg/dl (8.5-10.1); Creatinine Clr Calc Pharmacy 86.1 ml/min; Est GFR (African American) 84.8 ml/min; Est GFR (Non-African American) 73.2 ml/min; Potassium 3.9 mmol/L (3.5-5.1)
[2021-05-13 09:04] LABS: Partial Thromboplastin Time 53.6 Seconds (21.0-31.0)
--- NOTE | 2021-05-13 16:26 | Hospitalist Progress Note ---
Date of Service May 13, 2021 Assessment & Plan (1) Phlegmasia cerulea dolens: (2) Iliac DVT (deep venous thrombosis): (3) Bilateral pulmonary embolism: Plan: -Patient presenting from home with reports of worsening left lower extremity pain and swelling -In the ED, found to have extensive left lower extremity DVT involving the left iliac veins, visualized left femoral veins, and right internal iliac veins -CTA chest shows bilateral pulmonary embolism -Patient denies any prior history of blood clots. Denies any family history. Denies any recent travel. Denies any recent surgical intervention. States he is active at baseline. One possible risk factor being use of vaping. Continue with heparin. Left lower extremity continues to be significantly swollen. Likely transition to NOAC in the next day or 2. Pain and swelling have been improving without any evidence of compartment syndrome Appreciate vascular surgery input. Follow-up with hematology as an outpatient for hypercoagulable work-up. Clinically a lot better today denies any respiratory symptoms Discussed the risk of anticoagulation and the patient is willing to go with newer anticoagulation which will be started on discharge PT recommended home but the patient is not yet ready to be discharged Bilateral leg swelling especially left leg swelling is better and denies any other symptoms Continue PT Chronic back pain Has been on gabapentin and NSAID's Gabapentin will be continued and is strongly advised not to use anymore NSAID's Has been getting tramadol for pain control in the hospital Was advised to see his pain therapist following discharge Has been getting Ultram for pain control on top of gabapentin (4) DVT (deep venous thrombosis): Plan: As above (5) KASSY (acute kidney injury): Plan: -Creatinine 1.7 on admission; now 1.28. Patient was taking NSAIDs prior to admission. D/C IV fluids today. Monitor daily BMP. Avoid any nephrotoxic agents. Kidney function has been normalized Advised to drink more fluid (6) DVT prophylaxis: Plan: -On IV heparin Admission and Anticipated Discharge Date Admission Date: May 09, 2021 Subjective 05/12/2021 The patient was seen and examined in medical telemetry unit His leg symptoms have improved and denies any shortness of breath, cough or hemoptysis He has been waiting for physical therapy 05/13/2021 The patient was seen and examined in medical telemetry treatment His leg swelling is almost gone and denies any other significant symptoms except weakness Review of Systems Review of Systems: All systems reviewed and are unremarkable except as noted below Musculoskeletal: Bilateral leg heaviness which have been improving Physical Exam Physical Exam: Lying in bed comfortably Constitutional: well developed, well nourished and + obese; not ill appearing Eyes: PERRL, conjunctivae normal, anicteric sclerae ENMT: external ear and nose normal, oropharynx normal Neck: trachea midline, no thyromegaly Respiratory: no respiratory distress and no cough Auscultation: lungs clear to auscultation bilaterally Cardiovascular: Rate/Rhythm: regular rate and regular rhythm; not tachycardic Heart Sounds: normal S1, normal S2 and + murmur Extremities: no edema (Trace edema bilaterally, more on the left than the right) Gastrointestinal (Abdomen): Inspection/Auscultation: normal bowel sounds; abdomen not distended Percussion/Palpation: abdomen soft; abdomen nontender Musculoskeletal: No acute arthritis in any joint Neurologic: Alert, awake and oriented x3 Psychiatric: A+Ox3, euthymic affect Lymphatic: no cervical or axillary lymphadenopathy Results & Data Results & Data ([facility]) Vital Signs (Past 12 Hours) Vital Signs Temp Pulse Pulse Resp BP Pulse Ox 05/13/21 16:00 65 05/13/21 15:56 37 C 61 18 121/78 94 05/13/21 12:00 36.6 C 62 18 119/78 93 05/13/21 09:24 80 05/13/21 08:00 36.8 C 56 L 18 124/71 93 Laboratory Results Short CBC 05/13/21 Range/Units 07:36 WBC 8.32 (4.8-10.8) K/uL Hgb 12.9 L (14.0-18.0) g/dL Hct 37.8 L (42-52) % Plt Count 287 (130-400) K/uL BMP 05/13/21 07:36 Sodium 136 Potassium 3.9 Chloride 104 Carbon Dioxide 29 BUN 13 Creatinine 1.08 Glucose 101 H Calcium 8.8 Medications Administered Current Inpatient Medications Acetaminophen (Acetaminophen 325 Mg Tab) 650 mg PO Q4H PRN PRN Reason: pain/fever Stop: 06/08/21 13:17 Last Admin: 05/10/21 15:28 Dose: 650 mg Documented by: Cyclobenzaprine HCl (Cyclobenzaprine Hcl 10 Mg Tab) 10 mg PO BID PRN PRN Reason: Muscle Spasm Stop: 06/08/21 13:22 Heparin Sodium/Dextrose (Heparin Sodium/Dextrose) 25,000 units in 500 mls @ 26 mls/hr IV .[id number]; Protocol Stop: 06/08/21 10:59 Last Admin: 05/13/21 09:55 Dose: Not Given Documented by: Morphine Sulfate (Morphine Sulfate 4 Mg/Ml 1 Ml Carp\Vial) 4 mg IV Q4H PRN PRN Reason: Pain Stop: 05/23/21 16:30 Last Admin: 05/10/21 23:36 Dose: 4 mg Documented by: Rosuvastatin Calcium (Rosuvastatin Calcium 5 Mg Tab) [facility] [place] Stop: 06/09/21 08:59 Last Admin: 05/13/21 08:04 Dose: 5 mg Documented by: Tramadol HCl (Tramadol Hcl 50 Mg Tablet) 50 mg PO Q4H PRN PRN Reason: Pain Stop: 06/08/21 16:30 Last Admin: 05/12/21 22:50 Dose: 50 mg Documented by: (1) Phlegmasia cerulea dolens Laterality: left Qualified Code(s): I80.202 - Phlebitis and thrombophlebitis of unspecified deep vessels of left lower extremity (2) Iliac DVT (deep venous thrombosis) Chronicity: acute Laterality: bilateral Qualified Code(s): I82.423 - Acute embolism and thrombosis of iliac vein, bilateral
[2021-05-13] MEDS: traMADol HCL 50 MG TABLET PO PRN (21:05)
[2021-05-14] MEDS: ROSUVASTATIN CALCIUM 5 MG TAB PO SCH (08:26)
[2021-05-14] MEDS: traMADol HCL 50 MG TABLET PO PRN ×2 (08:26→21:19)
[2021-05-14 09:44] LABS: Partial Thromboplastin Time 53.2 Seconds (21.0-31.0)
[2021-05-14] MEDS: APIXABAN 5 MG TABLET PO SCH ×2 (10:49→21:19)
[2021-05-14] MEDS ORDERED: POLYETHYLENE (MIRALAX) 17 GM PACK PO PRN (11:23)
--- NOTE | 2021-05-14 11:50 | Ultrasound Report ---
ULTRASOUND BILATERAL LOWER EXTREMITY VENOUS CLINICAL HISTORY: Deep venous thrombosis. COMPARISON STUDY: Left lower extremity venous ultrasound dated 05/09/2021. TECHNIQUE: Real-time, grayscale, and color Doppler sonography of the deep veins of the right and left lower extremity was performed from the inguinal crease to the calf. Compression and augmentation wer e utilized. FINDINGS: Right lower extremity: There is no sonographic evidence of deep venous thrombosis in the right lower extremity. The common femoral, superficial femoral, and popliteal veins are patent and normally compr essible. The greater saphenous vein and the profunda femoris vein at the junction with the common fem oral vein are clear. The visualized calf veins are patent. Left lower extremity: Again seen is extensive deep venous thrombosis throughout the left lower extrem ity. Nonocclusive thrombus is identified within the left common femoral vein and throughout the super ficial femoral vein. Nonocclusive thrombus is also seen in the popliteal vein. The greater saphenous vein and the profunda femoris vein are occluded at the junction with the common femoral vein. The vis ualized calf veins are patent. IMPRESSION: 1. Superficial and deep venous thrombosis of the left lower extremity as above. This appears modestly improved as compared to 05/09/2021. 2. There is no sonographic evidence of deep venous thrombosis in the right lower extremity. ACT 112: Negative or not required by law. Electronically signed by: Braulio Case M.D. 05/14/2021 11:48 AM
--- NOTE | 2021-05-14 16:43 | Hospitalist Progress Note ---
Date of Service May 14, 2021 Assessment & Plan (1) Phlegmasia cerulea dolens: (2) Iliac DVT (deep venous thrombosis): (3) Bilateral pulmonary embolism: Plan: -Patient presenting from home with reports of worsening left lower extremity pain and swelling -In the ED, found to have extensive left lower extremity DVT involving the left iliac veins, visualized left femoral veins, and right internal iliac veins -CTA chest shows bilateral pulmonary embolism -Patient denies any prior history of blood clots. Denies any family history. Denies any recent travel. Denies any recent surgical intervention. States he is active at baseline. One possible risk factor being use of vaping. Continue with heparin. Left lower extremity continues to be significantly swollen. Likely transition to NOAC in the next day or 2. Pain and swelling have been improving without any evidence of compartment syndrome Appreciate vascular surgery input. Follow-up with hematology as an outpatient for hypercoagulable work-up. Clinically a lot better today denies any respiratory symptoms Discussed the risk of anticoagulation and the patient is willing to go with newer anticoagulation which will be started on discharge PT recommended home but the patient is not yet ready to be discharged Bilateral leg swelling especially left leg swelling is better and denies any other symptoms Continue PT-recommended that he can go home We will get ultrasound of the legs to evaluate the DVT status Start oral Eliquis and likely discharge tomorrow Will need outpatient hematology appointment to evaluate the cause for thrombosis Chronic back pain Has been on gabapentin and NSAID's Gabapentin will be continued and is strongly advised not to use anymore NSAID's Has been getting tramadol for pain control in the hospital Was advised to see his pain therapist following discharge Has been getting Ultram for pain control on top of gabapentin (4) DVT (deep venous thrombosis): Plan: As above (5) KASSY (acute kidney injury): Plan: -Creatinine 1.7 on admission; now 1.28. Patient was taking NSAIDs prior to admission. D/C IV fluids today. Monitor daily BMP. Avoid any nephrotoxic agents. Kidney function has been normalized Advised to drink more fluid-kidney function has been normalized (6) DVT prophylaxis: Plan: -On IV heparin -Started on Eliquis Admission and Anticipated Discharge Date Admission Date: May 09, 2021 Subjective 05/12/2021 The patient was seen and examined in medical telemetry unit His leg symptoms have improved and denies any shortness of breath, cough or hemoptysis He has been waiting for physical therapy 05/13/2021 The patient was seen and examined in medical telemetry treatment His leg swelling is almost gone and denies any other significant symptoms except weakness 05/14/2021 The patient was seen and examined in medical telemetry unit He has been feeling much better and denies any more leg swelling He does have minimal discomfort in the left upper thigh Review of Systems Review of Systems: All systems reviewed and are unremarkable except as noted below Musculoskeletal: Bilateral leg heaviness which have been improving Physical Exam Physical Exam: Lying in bed comfortably Constitutional: well developed, well nourished and + obese; not ill appearing Eyes: PERRL, conjunctivae normal, anicteric sclerae ENMT: external ear and nose normal, oropharynx normal Neck: trachea midline, no thyromegaly Respiratory: no respiratory distress and no cough Auscultation: lungs clear to auscultation bilaterally Cardiovascular: Rate/Rhythm: regular rate and regular rhythm; not tachycardic Heart Sounds: normal S1, normal S2 and + murmur Extremities: no edema (Trace edema bilaterally, more on the left than the right) Gastrointestinal (Abdomen): Inspection/Auscultation: normal bowel sounds; abdomen not distended Percussion/Palpation: abdomen soft; abdomen nontender Musculoskeletal: Arthritis in any joint Neurologic: Alert, awake and oriented x3. No focal sensory or motor deficit appreciated Psychiatric: A+Ox3, euthymic affect Lymphatic: no cervical or axillary lymphadenopathy Results & Data Results & Data ([facility]) Vital Signs (Past 12 Hours) Vital Signs Temp Pulse Pulse Resp BP BP Pulse Ox 05/14/21 15:39 37 C 69 18 111/68 92 05/14/21 15:21 70 05/14/21 12:00 36.8 C 71 18 117/81 05/14/21 08:00 36.9 C 58 L 18 125/80 92 05/14/21 07:09 62 Medications Administered Current Inpatient Medications Acetaminophen (Acetaminophen 325 Mg Tab) 650 mg PO Q4H PRN PRN Reason: pain/fever Stop: 06/08/21 13:17 Last Admin: 05/10/21 15:28 Dose: 650 mg Documented by: Apixaban (Apixaban 5 Mg Tablet) 10 mg PO BID [facility] Stop: 05/20/21 21:01 Last Admin: 05/14/21 10:49 Dose: 10 mg Documented by: Cyclobenzaprine HCl (Cyclobenzaprine Hcl 10 Mg Tab) 10 mg PO BID PRN PRN Reason: Muscle Spasm Stop: 06/08/21 13:22 Morphine Sulfate (Morphine Sulfate 4 Mg/Ml 1 Ml Carp\Vial) 4 mg IV Q4H PRN PRN Reason: Pain Stop: 05/23/21 16:30 Last Admin: 05/10/21 23:36 Dose: 4 mg Documented by: Polyethylene Glycol (Polyethylene (Miralax) 17 Gm Pack) 17 gm PO DAILY PRN PRN Reason: Constipation Stop: 06/13/21 11:22 Last Admin: 05/14/21 11:35 Dose: 17 gm Documented by: Rosuvastatin Calcium (Rosuvastatin Calcium 5 Mg Tab) 5 mg PO QAM [facility] Stop: 06/09/21 08:59 Last Admin: 05/14/21 08:26 Dose: 5 mg Documented by: Tramadol HCl (Tramadol Hcl 50 Mg Tablet) 50 mg PO Q4H PRN PRN Reason: Pain Stop: 06/08/21 16:30 Last Admin: 05/14/21 08:26 Dose: 50 mg Documented by: (1) Phlegmasia cerulea dolens Laterality: left Qualified Code(s): I80.202 - Phlebitis and thrombophlebitis of unspecified deep vessels of left lower extremity (2) Iliac DVT (deep venous thrombosis) Chronicity: acute Laterality: bilateral Qualified Code(s): I82.423 - Acute embolism and thrombosis of iliac vein, bilateral
[2021-05-15] MEDS: traMADol HCL 50 MG TABLET PO PRN (08:20)
[2021-05-15] MEDS: ROSUVASTATIN CALCIUM 5 MG TAB PO SCH (08:20)
[2021-05-15] MEDS: APIXABAN 5 MG TABLET PO SCH (08:20)
--- NOTE | 2021-05-15 12:48 | Discharge Summary ---
Date of Service May 15, 2021 Admission HPI Per Admitting Provider 60-year-old male with PMH chronic back pain, dyslipidemia, former tobacco abuse, and other problems as below who presents the ED for evaluation of left lower extremity swelling and pain. Patient notes a slowly increasing left leg swelling and pain over the past few days. Patient also reports chronic low back pain which seems to be at baseline however yesterday, he developed some tingling to lower back that he felt was similar to a shingles outbreak before. Patient had a telemedicine visit with PCP yesterday who prescribed prednisone and valacyclovir. This morning, left leg had swelling extending from the foot up to the hip and was completely discolored. Patient then presented to the ED for further evaluation. Patient thinks he may have some mild worsening shortness of breath. No chest pain. Denies lightheadedness, dizziness, diaphoresis, syncopal events. No other recent illnesses, fevers, chills. He denies abdominal pain, nausea, vomiting, diarrhea. No urinary symptoms. In the ED, LLE venous Doppler shows extensive DVT within the left lower extremity. CTA ABD/pelvis shows occlusive DVT involving the left iliac veins, visualized left femoral veins, and right internal iliac veins. The IVC appears patent. CT chest shows Multiple bilateral pulmonary emboli, right greater than left. No evidence for right-sided heart strain. Patient is hemodynamically stable. He was given a heparin bolus and started on a drip. He also received doses of IV morphine and IV Zofran. Admission Exam Per Admitting Provider NAD Heart: normal S1/S2, no murmur Lungs: CTA, no wheezing or crackles Abd: ND, NT, soft L LE: severe swelling with disolouration, cold to touch, difficult to assess dorsalis and posterior tibialis pulse Psych: AAOx3 Skin (back): no sign of vesicles or erythema or ulcers/rash Principal Diagnosis 1) Phlegmasia cerulea dolens: (2) Iliac DVT (deep venous thrombosis): (3) Bilateral pulmonary embolism: Discharge Exam General: A&Ox3 HENT: NCAT, MMM, EOMI Eyes: PERRLA Neck: Supple, normal range of motion CVS: normal rate and rhythm Resp: b/l decrease breaht sounds Abdomen: Soft, ND/NT Extremities: LLE is more swollen compared to the R Neuro: face symmetric, o focal deficit Skin: warm and dry MSK: no joint swelling/erythema Discharge Data Allergies Allergy/AdvReac Type Severity Reaction Status Date / Time digoxin Allergy Verified 05/09/21 10:57 Consultations 05/09/21 10:54 ED Decision to Admit Stat 05/09/21 13:18 Consult Vascular Surgery Routine Ordered Studies 05/09/21 09:01 US venous doppler LE LT Stat 05/09/21 09:02 CT abd pelvis IV con only Stat 05/09/21 10:08 CT angio chest PE protocol Stat CT head/brain wo con Stat 05/14/21 10:39 US venous doppler LE BI Routine Hospital Course (1) Phlegmasia cerulea dolens: (2) Iliac DVT (deep venous thrombosis): (3) Bilateral pulmonary embolism: (4) DVT (deep venous thrombosis): -Patient presenting from home with reports of worsening left lower ex tremity pain and swelling -In the ED, found to have extensive left lower extremity DVT involving the left iliac veins, visualized left femoral veins, and right internal iliac veins -CTA chest shows bilateral pulmonary embolism -Patient denies any prior history of blood clots. Denies any family history. Denies any recent travel. Denies any recent surgical intervention. States he is active at baseline. One possible risk factor being use of vaping. Continue with heparin. Left lower extremity continues to be significantly swollen. Patient may transition from heparin to Eliquis. On the day of discharge patient was doing okay. Hemodynamically he was doing fine. Pain was well controlled did not have any major complaints was discharged stable condition. Patient was referred to hematology as an outpatient. (5) KASSY (acute kidney injury): Resolved prior to discharge. Recommended limit use of NSAIDs. Total Time Total Time Spent Total Time Spent (In Minutes): 35 Discharge Plan Discharge Items Patient Disposition: Home - Self-Care Reason For Visit: DVT, PE Discharge Diagnosis: (1) Phlegmasia cerulea dolens: (2) Iliac DVT (deep venous thrombosis): (3) Bilateral pulmonary embolism: Activity: As commented below Non-emergency contact: Primary Care Provider Call non-emergency contact if: your symptoms worsen Follow-up/Referrals: Marquis Barrett MD [Primary Care Provider] - (Date & Time 05/22/2021 9:00 AM Provider Marquis Barrett MD Department [facility] ) Diet: Heart Healthy Addtl Attending Provider Instructions: Follow-up with your primary care physician and hematology as an outpatient. An appointment has been requested Start taking Eliquis 10 mg twice daily until 05/20/2021 followed by 5 mg twice daily. Pending Studies at Discharge: No Stand-Alone Forms: My [facility] [employer], Smoking Cessation Medications and DC Order Prescriptions: New Eliquis 5 mg tablet 5 mg PO BID Qty: 60 RF: 0 Continued cyclobenzaprine 10 mg tablet 10 mg PO BID PRN (Reason: Muscle Spasm) RF: 0 pantoprazole [Protonix] 40 mg tablet,delayed release (DR/EC) 40 mg PO DAILY PRN (Reason: Acid Reflux) RF: 0 gabapentin [Neurontin] 300 mg capsule 300 mg PO TID RF: 0 valacyclovir [Valtrex] 1 gram tablet 1 mg PO TID RF: 0 rosuvastatin [Crestor] 5 mg tablet 5 mg PO QAM RF: 0 Discontinued meloxicam [Mobic] 15 mg tablet 15 mg PO DAILY RF: 0 ibuprofen [Advil] 200 mg Tablet 200 mg PO Q6H PRN (Reason: Pain) RF: 0 Discharge Orders: Discharge Order (Routine); Ordered 05/15/21 Ordered By: Destiny Baum/Other Patient Handouts: DVT Post Op Prevention, Self-Care for Low Back Pain, Understanding Chronic Pain, Understanding Venous Thromboembolism Admission Data Admit Date/Time: 05/09/21 11:26 Attending Provider: Destiny Vásquez Admit Provider: Manjit Cano Primary Care Provider: Marquis Barrett Other Providers: Manjit Cano ; Edilson Guzman ; Destiny Vásquez Other Interventions: Discharge Summary Assessment (RN) Last Done: 05/15/21 11:10
== END 2021-05-15 13:15 | disposition home or self-care (01) | DRG 299 ==
LOC: ED 08:25 → EDINP 11:26 → SUATTDRO 11:26 → EDINP 13:00 → 2N 16:24